=== PATIENT | female | born 1970 | race Caucasian/White ===

== ENCOUNTER 2018-02-28 13:27 | Outpatient (CLI) | payer BC ==
--- NOTE | 2018-02-28 15:36 | ULT ---
LIMITED LEFT BREAST ULTRASOUND: Date: 02/28/18 PROVIDED CLINICAL HISTORY: Left breast pain. FINDINGS: Limited sonographic interrogation was performed of the left breast from the 3-6 o'clock positions. Oc casional simple-appearing cysts are seen. No suspicious masses are evident. IMPRESSION: BIRADS Category 2 - Benign findings. Negative or benign imaging findings should not preclude further evaluation of a clinically suspicious area. The patient is referred back to her clinician. POS: OFF
== END 2018-02-28 13:28 | disposition home or self-care (01) ==
LOC: BICMAMMO 13:27
PROVIDERS: ATTEND Advanced Practice Midwife
DX: N63.20 Unspecified lump in the left breast, unspecified quadrant (principal)
CPT/HCPCS: 77066; G0279